=== PATIENT | female | born 1970 | race Two or more races ===

== ENCOUNTER → 2016-06-15 | Outpatient (CLI) | payer OTHER ==
[~2016-06-15] MED LIST: ATOR20TA; LISI-646; ROPI5TAB2; SUM25T; TRAM50TA2; [UNRECOGNIZED DRUG - CODE]
== END | disposition home or self-care (01) ==
LOC: LAB 12:01
PROVIDERS: ATTEND Nurse Practitioner
DX: Z02.1 Encounter for pre-employment examination (principal)
CPT/HCPCS: 36415; 86706; 86735; 86762; 86765; 86787

== ENCOUNTER → 2016-12-23 | Outpatient (CLI) | payer BC ==
[2016-12-23 12:00] LABS: Urine Bilirubin Negative (Negative); Urine Blood TRACE /uL (Negative); Urine Color Yellow (Yellow); Urine Glucose Normal (Normal); Urine Ketone Negative (Negative); Urine Mucus FEW (None Seen); Urine Nitrite Negative (Negative); Urine RBC 1 /hpf (0 - 4); Urine Squamous Epithelial Cell FEW /hpf (<5); Urine Urobilinogen Normal (Negative); Urine pH 6.5 (5.0-8.0)
[2016-12-23 12:31] LABS: Albumin 4.2 g/dL (3.4-5.0); BUN/Creatinine Ratio 20.9; Bilirubin, Total 0.5 mg/dL (0.2-1.0); Potassium 3.8 mmol/L (3.5-5.1); Total Protein 7.9 g/dL (6.4-8.2)
[2016-12-23 12:36] LABS: Vitamin B12 426 pg/mL (211-911)
[2016-12-23 14:41] LABS: Basophils # (auto) 0 uL; Basophils % (auto) 0.5 % (0.0-2.0); CONDITION Y; Eosinophils # (auto) 0.1 uL; Eosinophils % (auto) 2.2 % (0.0-7.0); Lymphocytes # (auto) 2.2 uL; Lymphocytes % (auto) 39.1 % (10.0-50.0); Mean Corpuscular Hemoglobin 29.3 pg (28.0-32.0); Mean Corpuscular Volume 86.1 fL (80.0-100.0); Mean Platelet Volume 8.5 fL (7.4-10.4); Monocytes # (auto) 0.3 uL; Monocytes % (auto) 5.1 % (0.0-12.0); Neutrophils % (auto) 53.1 % (37.0-80.0); Platelet Count (auto) 262 10^3/uL (140-450); White Blood Cell 5.6 10^3/uL (4.4-10.8)
== END | disposition home or self-care (01) ==
LOC: LAB 11:35
PROVIDERS: ATTEND Nurse Practitioner
DX: E78.5 Hyperlipidemia, unspecified (principal)
CPT/HCPCS: 36415; 80053; 80061; 81001; 82270; 82306; 82607; 82746; 83036; 84443; 85025

== ENCOUNTER → 2017-11-04 | Outpatient (CLI) | payer BC ==
[2017-11-04 12:06] LABS: Basophils # (auto) 0 uL; Basophils % (auto) 0.6 % (0.0-2.0); Eosinophils # (auto) 0.1 uL; Eosinophils % (auto) 1.6 % (0.0-7.0); Hematocrit 39.6 % (36.0-46.0); Hemoglobin 13.4 g/dL (12.2-16.2); Lymphocytes # (auto) 2.3 uL; Lymphocytes % (auto) 38.1 % (10.0-50.0); Mean Corpuscular Hemoglobin 29.5 pg (28.0-32.0); Mean Corpuscular Hgb Conc. 33.8 g/dL (32.0-36.0); Mean Corpuscular Volume 87.2 fL (80.0-100.0); Monocytes # (auto) 0.4 uL; Monocytes % (auto) 6.1 % (0.0-12.0); Neutrophils # (auto) 3.2 uL; Neutrophils % (auto) 53.6 % (37.0-80.0); Nucleated Red Blood Cells % 0.1 %; Platelet Count (auto) 213 10^3/uL (140-450); Red Blood Cells 4.54 10^6/uL (4.0-5.20); Red Cell Distribution Width 13.6 % (11.8-14.3); White Blood Cell 5.9 10^3/uL (4.4-10.8)
[2017-11-04 12:16] LABS: Urine Bacteria NONE SEEN /hpf (None Seen); Urine Blood TRACE /uL (Negative); Urine Mucus FEW (None Seen); Urine Specific Gravity 1.028 (1.001-1.035); Urine WBC 2 /hpf (0 - 5)
[2017-11-04 12:52] LABS: Albumin 3.9 g/dL (3.4-5.0); BUN/Creatinine Ratio 34.4; Bilirubin, Total 0.3 mg/dL (0.2-1.0); Calcium 8.7 mg/dL (8.5-10.1); Total Protein 7.2 g/dL (6.4-8.2)
== END | disposition home or self-care (01) ==
LOC: LAB 11:02
PROVIDERS: ATTEND Nurse Practitioner
DX: E78.5 Hyperlipidemia, unspecified (principal); I10 Essential (primary) hypertension
CPT/HCPCS: 36415; 80053; 80061; 81001; 82306; 83036; 85025

== ENCOUNTER → 2018-05-11 | Outpatient (CLI) | payer BC ==
[~2018-05-11] MED LIST changes: -ROPI5TAB2; +ROPI5TAB4
[2018-05-11 11:06] LABS: Basophils # (auto) 0 uL; Basophils % (auto) 0.7 % (0.0-2.0); Eosinophils # (auto) 0.1 uL; Hematocrit 40.8 % (36.0-46.0); Hemoglobin 13.4 g/dL (12.2-16.2); Lymphocytes # (auto) 2.2 uL; Lymphocytes % (auto) 44.2 % (10.0-50.0); Mean Corpuscular Hgb Conc. 32.9 g/dL (32.0-36.0); Mean Corpuscular Volume 88.3 fL (80.0-100.0); Monocytes # (auto) 0.3 uL; Monocytes % (auto) 5.3 % (0.0-12.0); Neutrophils # (auto) 2.4 uL; Neutrophils % (auto) 47.8 % (37.0-80.0); Nucleated Red Blood Cells % 0.1 %; Platelet Count (auto) 203 10^3/uL (140-450); Red Blood Cells 4.62 10^6/uL (4.0-5.20); Red Cell Distribution Width 13.2 % (11.8-14.3)
[2018-05-11 11:12] LABS: Urine Bacteria NONE SEEN /hpf (None Seen); Urine Blood Negative /uL (Negative); Urine Specific Gravity 1.011 (1.001-1.035); Urine WBC 1 /hpf (0 - 5)
[2018-05-11 11:21] LABS: Albumin 3.9 g/dL (3.4-5.0); Potassium 3.3 mmol/L (3.5-5.1)
[2018-05-11 11:29] LABS: BUN/Creatinine Ratio 27.8; Bilirubin, Total 0.3 mg/dL (0.2-1.0); Calcium 8.7 mg/dL (8.5-10.1); Total Protein 7.1 g/dL (6.4-8.2)
== END | disposition home or self-care (01) ==
LOC: LAB 10:06
PROVIDERS: ATTEND Nurse Practitioner
DX: E78.5 Hyperlipidemia, unspecified (principal)
CPT/HCPCS: 36415; 80053; 80061; 81001; 82306; 85025

== ENCOUNTER → 2018-12-13 | Outpatient (CLI) | payer BC | END | disposition home or self-care (01) | LOC: LAB 09:32 | PROVIDERS: ATTEND Nurse Practitioner | DX: Z01.818 Encounter for other preprocedural examination (principal) | CPT/HCPCS: 36415; 82565; 84520 ==

== ENCOUNTER → 2019-06-29 | Outpatient (CLI) | payer BC ==
[2019-06-29 08:21] LABS: Basophils # (auto) 0 uL; Basophils % (auto) 0.8 % (0.0-2.0); Eosinophils # (auto) 0.1 uL; Eosinophils % (auto) 2.1 % (0.0-7.0); Hematocrit 39.7 % (36.0-46.0); Hemoglobin 13.4 g/dL (12.2-16.2); Lymphocytes % (auto) 42.5 % (10.0-50.0); Mean Corpuscular Hgb Conc. 33.9 g/dL (32.0-36.0); Mean Corpuscular Volume 85.5 fL (80.0-100.0); Monocytes # (auto) 0.3 uL; Monocytes % (auto) 5.5 % (0.0-12.0); Neutrophils # (auto) 2.4 uL; Neutrophils % (auto) 49.1 % (37.0-80.0); Nucleated Red Blood Cells % 0.1 %; Platelet Count (auto) 232 10^3/uL (140-450); Red Blood Cells 4.64 10^6/uL (4.0-5.20); Red Cell Distribution Width 13.4 % (11.8-14.3); White Blood Cell 4.8 10^3/uL (4.4-10.8)
[2019-06-29 08:46] LABS: Urine Bacteria MOD /hpf (None Seen); Urine Blood Negative /uL (Negative); Urine Mucus FEW (None Seen); Urine WBC 7 /hpf (0 - 5)
[2019-06-29 08:58] LABS: Albumin 3.8 g/dL (3.4-5.0); Potassium 3.5 mmol/L (3.5-5.1)
[2019-06-29 09:02] LABS: BUN/Creatinine Ratio 23.1; Bilirubin, Total 0.3 mg/dL (0.2-1.0); Total Protein 7.2 g/dL (6.4-8.2)
== END | disposition home or self-care (01) ==
LOC: LAB 08:08
PROVIDERS: ATTEND Nurse Practitioner
DX: Z00.00 Encounter for general adult medical examination without abnormal findings (principal); E78.5 Hyperlipidemia, unspecified
CPT/HCPCS: 36415; 80053; 80061; 81001; 82306; 83036; 84443; 85025

== ENCOUNTER → 2019-11-14 | Outpatient (CLI) | payer BC ==
[2019-11-14 07:53] LABS: Urine Bacteria FEW /hpf (None Seen); Urine Blood Negative /uL (Negative); Urine Mucus FEW (None Seen); Urine Specific Gravity 1.017 (1.001-1.035); Urine WBC 2 /hpf (0 - 5)
[2019-11-14 07:56] LABS: Basophils # (auto) 0 10 ^3/uL (0-0.2); Basophils % (auto) 1.1 % (0.0-2.0); Eosinophils # (auto) 0.1 10 ^3/uL (0-0.8); Eosinophils % (auto) 2.6 % (0.0-7.0); Hematocrit 38.3 % (36.0-46.0); Hemoglobin 12.8 g/dL (12.2-16.2); Lymphocytes # (auto) 2.3 10 ^3/uL (0.4-5.4); Lymphocytes % (auto) 52.4 % (10.0-50.0); Mean Corpuscular Hemoglobin 28.8 pg (28.0-32.0); Mean Corpuscular Hgb Conc. 33.3 g/dL (32.0-36.0); Mean Corpuscular Volume 86.6 fL (80.0-100.0); Monocytes # (auto) 0.2 10 ^3/uL (0-1.3); Monocytes % (auto) 5.6 % (0.0-12.0); Neutrophils # (auto) 1.7 10 ^3/uL (1.6-8.6); Neutrophils % (auto) 38.3 % (37.0-80.0); Nucleated Red Blood Cells % 0.2 %; Platelet Count (auto) 201 10^3/uL (140-450); Red Blood Cells 4.43 10^6/uL (4.0-5.20); Red Cell Distribution Width 13.8 % (11.8-14.3); White Blood Cell 4.4 10^3/uL (4.4-10.8)
[2019-11-14 08:10] LABS: Potassium 3.9 mmol/L (3.5-5.1)
[2019-11-14 08:18] LABS: Albumin 3.8 g/dL (3.4-5.0); BUN/Creatinine Ratio 27.3; Bilirubin, Total 0.3 mg/dL (0.2-1.0); Calcium 8.8 mg/dL (8.5-10.1); Total Protein 6.7 g/dL (6.4-8.2)
== END | disposition home or self-care (01) ==
LOC: LAB 07:20
PROVIDERS: ATTEND Nurse Practitioner
DX: I10 Essential (primary) hypertension (principal); E78.5 Hyperlipidemia, unspecified; R73.9 Hyperglycemia, unspecified
CPT/HCPCS: 36415; 80053; 80061; 81001; 83036; 85025

== ENCOUNTER → 2020-09-11 | Outpatient (CLI) | payer BC ==
[~2020-09-11] MED LIST changes: -LISI-646; +LISI20TA28
== END | disposition home or self-care (01) ==
LOC: LAB 09:39
PROVIDERS: ATTEND Nurse Practitioner Family
DX: Z20.822 Contact with and (suspected) exposure to COVID-19 (principal)
CPT/HCPCS: C9803; U0003

== ENCOUNTER → 2021-04-15 | Outpatient (CLI) | payer BC | END | disposition home or self-care (01) | LOC: LAB 08:58 | PROVIDERS: ATTEND Nurse Practitioner Family | DX: Z11.52 Encounter for screening for COVID-19 (principal) | CPT/HCPCS: C9803; U0003 ==

== ENCOUNTER 2021-05-03 15:12 | Emergency (ER) | payer BC ==
[~2021-05-03] VITALS: Ht 162.6 cm; Wt 92.1 kg
[2021-05-03] MEDS ORDERED: cloNIDine HCL 0.1 MG TAB PO ONE (16:00)
[2021-05-03] MEDS ORDERED: LORazepam 0.5 MG TAB PO ONE (16:00)
[2021-05-03 16:59] LABS: Basophils # (auto) 0 10 ^3/uL (0-0.2); Basophils % (auto) 0.4 % (0.0-2.0); Eosinophils # (auto) 0.1 10 ^3/uL (0-0.8); Eosinophils % (auto) 1.6 % (0.0-7.0); Hematocrit 42.4 % (36.0-46.0); Hemoglobin 14.2 g/dL (12.2-16.2); Lymphocytes # (auto) 1.8 10 ^3/uL (0.4-5.4); Lymphocytes % (auto) 28.1 % (10.0-50.0); Mean Corpuscular Hemoglobin 28.9 pg (28.0-32.0); Mean Corpuscular Hgb Conc. 33.6 g/dL (32.0-36.0); Monocytes # (auto) 0.3 10 ^3/uL (0-1.3); Monocytes % (auto) 5.2 % (0.0-12.0); Neutrophils % (auto) 64.7 % (37.0-80.0); Nucleated Red Blood Cells % 0.1 %; Red Blood Cells 4.93 10^6/uL (4.0-5.20); Red Cell Distribution Width 13.5 % (11.8-14.3); White Blood Cell 6.2 10^3/uL (4.4-10.8)
[2021-05-03 17:11] LABS: Albumin 4.1 g/dL (3.4-5.0); Calcium 9.1 mg/dL (8.5-10.1); Potassium 3.5 mmol/L (3.5-5.1)
[2021-05-03 17:20] LABS: Bilirubin, Total 0.2 mg/dL (0.2-1.0); Total Protein 7.8 g/dL (6.4-8.2)
[2021-05-03 20:00] VITALS: BP 164/83
== END 2021-05-03 21:15 | disposition home or self-care (01) ==
LOC: ER 15:12
DX: I10 Essential (primary) hypertension (principal); F41.9 Anxiety disorder, unspecified; D64.9 Anemia, unspecified; E78.5 Hyperlipidemia, unspecified; Z91.040 Latex allergy status; Z90.710 Acquired absence of both cervix and uterus
CPT/HCPCS: 36415; 80053; 84484; 85025; 93005

== ENCOUNTER → 2021-06-02 | Outpatient (CLI) | payer BC ==
[2021-06-02 09:30] LABS: Basophils # (auto) 0 10 ^3/uL (0-0.2); Basophils % (auto) 0.5 % (0.0-2.0); Eosinophils # (auto) 0.1 10 ^3/uL (0-0.8); Eosinophils % (auto) 2.2 % (0.0-7.0); Hematocrit 39.9 % (36.0-46.0); Hemoglobin 13.3 g/dL (12.2-16.2); Lymphocytes # (auto) 1.9 10 ^3/uL (0.4-5.4); Lymphocytes % (auto) 39.2 % (10.0-50.0); Mean Corpuscular Hemoglobin 28.6 pg (28.0-32.0); Mean Corpuscular Hgb Conc. 33.4 g/dL (32.0-36.0); Mean Corpuscular Volume 85.7 fL (80.0-100.0); Monocytes # (auto) 0.3 10 ^3/uL (0-1.3); Monocytes % (auto) 5.8 % (0.0-12.0); Neutrophils # (auto) 2.5 10 ^3/uL (1.6-8.6); Neutrophils % (auto) 52.3 % (37.0-80.0); Nucleated Red Blood Cells % 0.1 %; Red Blood Cells 4.66 10^6/uL (4.0-5.20); Red Cell Distribution Width 13.3 % (11.8-14.3); White Blood Cell 4.8 10^3/uL (4.4-10.8)
[2021-06-02 09:36] LABS: Urine Bacteria NONE SEEN /hpf (None Seen); Urine Blood Negative /uL (Negative); Urine Hyaline Cast FEW /lpf (0 - 2); Urine Mucus FEW (None Seen); Urine Specific Gravity 1.021 (1.001-1.035); Urine WBC 10 /hpf (0 - 5)
[2021-06-02 09:53] LABS: Albumin 3.9 g/dL (3.4-5.0); Calcium 8.9 mg/dL (8.5-10.1); Potassium 3.8 mmol/L (3.5-5.1)
[2021-06-02 10:00] LABS: BUN/Creatinine Ratio 30.9; Bilirubin, Total 0.3 mg/dL (0.2-1.0); Total Protein 7.4 g/dL (6.4-8.2)
== END | disposition home or self-care (01) ==
LOC: LAB 08:23
PROVIDERS: ATTEND Nurse Practitioner
DX: R73.9 Hyperglycemia, unspecified (principal); E78.5 Hyperlipidemia, unspecified; I10 Essential (primary) hypertension
CPT/HCPCS: 36415; 80053; 80061; 81001; 84443; 85025

== ENCOUNTER → 2021-12-02 | Outpatient (CLI) | payer BC ==
[2021-12-02 07:41] LABS: Albumin 3.6 g/dL (3.4-5.0)
[2021-12-02 07:46] LABS: BUN/Creatinine Ratio 33.3; Bilirubin, Total 0.5 mg/dL (0.2-1.0); Total Protein 6.8 g/dL (6.4-8.2)
== END | disposition home or self-care (01) ==
LOC: LAB 06:33
PROVIDERS: ATTEND Nurse Practitioner
DX: E78.5 Hyperlipidemia, unspecified (principal)
CPT/HCPCS: 36415; 80053; 80061

== ENCOUNTER → 2022-04-01 | Outpatient (CLI) | payer BC ==
[2022-04-01 09:53] LABS: Albumin 3.7 g/dL (3.4-5.0); BUN/Creatinine Ratio 27.5; Calcium 9.1 mg/dL (8.5-10.1); Potassium 3.3 mmol/L (3.5-5.1); Total Protein 6.9 g/dL (6.4-8.2)
== END | disposition home or self-care (01) ==
LOC: LAB 08:58
PROVIDERS: ATTEND Nurse Practitioner
DX: E78.5 Hyperlipidemia, unspecified (principal); E73.9 Lactose intolerance, unspecified
CPT/HCPCS: 36415; 80053; 80061; 83036

== ENCOUNTER → 2022-09-28 | Outpatient (CLI) | payer BC | END | disposition home or self-care (01) | LOC: LAB 16:04 | PROVIDERS: ATTEND Licensed Practical Nurse | DX: K92.1 Melena (principal) | CPT/HCPCS: 82270 ==

== ENCOUNTER → 2022-11-25 | Outpatient (CLI) | payer BC ==
[~2022-11-25] MED LIST changes: -LISI20TA28; +LISI20TA56; +ROPI5TAB17; -ROPI5TAB4
[2022-11-25 15:07] LABS: Basophils # (auto) 0 10 ^3/uL (0-0.2); Basophils % (auto) 0.5 % (0.0-2.0); Eosinophils # (auto) 0.1 10 ^3/uL (0-0.8); Hematocrit 40.9 % (36.0-46.0); Hemoglobin 13.8 g/dL (12.2-16.2); Lymphocytes # (auto) 2.1 10 ^3/uL (0.4-5.4); Lymphocytes % (auto) 36.1 % (10.0-50.0); Mean Corpuscular Hemoglobin 29.2 pg (28.0-32.0); Mean Corpuscular Hgb Conc. 33.8 g/dL (32.0-36.0); Mean Corpuscular Volume 86.4 fL (80.0-100.0); Monocytes # (auto) 0.3 10 ^3/uL (0-1.3); Neutrophils # (auto) 3.3 10 ^3/uL (1.6-8.6); Neutrophils % (auto) 56.4 % (37.0-80.0); Red Blood Cells 4.73 10^6/uL (4.0-5.20); Red Cell Distribution Width 13.5 % (11.8-14.3); White Blood Cell 5.8 10^3/uL (4.4-10.8)
[2022-11-25 15:32] LABS: Urine Bacteria NONE SEEN /hpf (None Seen); Urine Blood Negative /uL (Negative); Urine Mucus FEW (None Seen); Urine Specific Gravity 1.015 (1.001-1.035); Urine WBC 1 /hpf (0 - 5)
[2022-11-25 15:42] LABS: Albumin 4.2 g/dL (3.4-5.0); Calcium 9.6 mg/dL (8.5-10.1); Potassium 4.1 mmol/L (3.5-5.1)
[2022-11-25 15:46] LABS: BUN/Creatinine Ratio 22.4 (10.0-20.0); Bilirubin, Total 0.7 mg/dL (0.2-1.0); Total Protein 7.5 g/dL (6.4-8.2)
== END | disposition home or self-care (01) ==
LOC: LAB 14:40
PROVIDERS: ATTEND Internal Medicine
DX: I10 Essential (primary) hypertension (principal); E78.5 Hyperlipidemia, unspecified
CPT/HCPCS: 36415; 80053; 80061; 81001; 83036; 85025

== ENCOUNTER 2023-02-16 13:19 | Day surgery (SDC) | payer BC ==
[2023-02-14 14:33] LABS: Basophils # (auto) 0 10 ^3/uL (0-0.2); Basophils % (auto) 0.7 % (0.0-2.0); Eosinophils # (auto) 0.1 10 ^3/uL (0-0.8); Eosinophils % (auto) 1.2 % (0.0-7.0); Hematocrit 37.9 % (36.0-46.0); Hemoglobin 12.7 g/dL (12.2-16.2); Lymphocytes # (auto) 2.1 10 ^3/uL (0.4-5.4); Lymphocytes % (auto) 37.3 % (10.0-50.0); Mean Corpuscular Hgb Conc. 33.6 g/dL (32.0-36.0); Mean Corpuscular Volume 86.5 fL (80.0-100.0); Monocytes # (auto) 0.4 10 ^3/uL (0-1.3); Monocytes % (auto) 6.6 % (0.0-12.0); Neutrophils % (auto) 54.2 % (37.0-80.0); Nucleated Red Blood Cells % 0.1 %; Red Blood Cells 4.39 10^6/uL (4.0-5.20); Red Cell Distribution Width 13.5 % (11.8-14.3); White Blood Cell 5.5 10^3/uL (4.4-10.8)
[2023-02-14 14:49] LABS: Partial Thromboplastin Time 29.9 SEC (24.5-34.5); Prothrombin Time 10.5 sec (9.3-11.8)
[2023-02-14 15:05] LABS: Alanine Aminotransferase 20 U/L (7-40); Albumin 4.6 g/dL (3.2-4.8); Alkaline Phosphatase 51 U/L (46-116); Anion Gap 7 (5-15); Aspartate Aminotransferase 18 U/L (13-40); BUN/Creatinine Ratio 16.1 (10.0-20.0); Bilirubin, Total 0.4 mg/dL (0.2-1.0); Blood Urea Nitrogen 10 mg/dL (9-23); Calcium 9.7 mg/dL (8.5-10.1); Carbon Dioxide 28 mmol/L (20-30); Chloride 107 mmol/L (98-107); Glucose 103 mg/dL (74-106); Potassium 3.8 mmol/L (3.5-5.1); Sodium 142 mmol/L (136-145); Total Protein 7.4 g/dL (5.7-8.2)
[~2023-02-16] VITALS: Ht 162.6 cm; Wt 83.5 kg
[~2023-02-16 13:19] MED LIST changes: -ATOR20TA; +CHOL200064 PO; -LISI20TA56; +POTA10TA51 PO; -ROPI5TAB17; +SERT-206 PO; -TRAM50TA2; +TRIA75TA11 PO; -[UNRECOGNIZED DRUG - CODE]
[2023-02-16] MEDS ORDERED: SODIUM CHLORIDE LOCK 10 ML ONE (14:38)
[2023-02-16 15:00] VITALS: PULSE 81; RESP 20; O2SAT 99
[2023-02-16] MEDS: MIDAZOLAM HCL 5 MG/ML-1ML VIAL ONE ×3 (15:05→15:14)
[2023-02-16] MEDS: fentaNYL CITRATE 100 MCG/2 ML VL ONE ×2 (15:05→15:11)
[2023-02-16] MEDS: diphenhdrAMINE HCL 50 MG/1 ML VL ONE ×2 (15:05→15:07)
[2023-02-16 15:25] VITALS: TEMP 97.3; O2SAT 99
[2023-02-16 15:55] VITALS: BP 139/87; PULSE 72; RESP 15; O2SAT 98
== END 2023-02-16 15:58 | disposition home or self-care (01) ==
LOC: GI 13:19
PROVIDERS: ATTEND Internal Medicine Gastroenterology
DX: Z12.11 Encounter for screening for malignant neoplasm of colon (principal); K64.0 First degree hemorrhoids; K57.30 Diverticulosis of large intestine without perforation or abscess without bleeding
CPT/HCPCS: 36415; 45378; 80053; 85025; 85610; 85730; J1200; J2250; J3010; J7030; 99152

== ENCOUNTER → 2023-02-28 | Outpatient (CLI) | payer BC ==
[2023-02-28 08:40] LABS: Triglycerides 200 mg/dL (< 150)
[2023-02-28 08:41] LABS: LDL Cholesterol 126 mg/dL (< 100)
[2023-02-28 08:42] LABS: Cholesterol 212 mg/dL (< 200); HDL Cholesterol 53 mg/dL (40-59)
== END | disposition home or self-care (01) ==
LOC: LAB 08:22
PROVIDERS: ATTEND Internal Medicine
DX: E78.5 Hyperlipidemia, unspecified (principal)
CPT/HCPCS: 36415; 80061

== ENCOUNTER → 2023-07-15 | Outpatient (CLI) | payer BC ==
[2023-07-15 12:48] LABS: LDL Cholesterol 161 mg/dL (< 100); Triglycerides 98 mg/dL (< 150)
[2023-07-15 12:49] LABS: Cholesterol 221 mg/dL (< 200); HDL Cholesterol 59 mg/dL (40-59)
== END | disposition home or self-care (01) ==
LOC: LAB 10:18
PROVIDERS: ATTEND Internal Medicine
DX: E78.5 Hyperlipidemia, unspecified (principal)
CPT/HCPCS: 36415; 80061; 83036

== ENCOUNTER 2023-11-30 00:15 | Emergency (ER) | payer BC ==
[~2023-11-30] VITALS: Ht 162.6 cm; Wt 81.0 kg
[~2023-11-30 00:15] MED LIST changes: +POTA-36 PO; -POTA10TA51 PO
[2023-11-30] MEDS: ONDANSETRON HCL 4 MG/2 ML VIAL IV ONE (00:45)
[2023-11-30 01:13] LABS: Basophils # (auto) 0 10 ^3/uL (0-0.2); Basophils % (auto) 0.3 % (0.0-2.0); Eosinophils # (auto) 0 10 ^3/uL (0-0.8); Eosinophils % (auto) 0.4 % (0.0-7.0); Hematocrit 39.6 % (36.0-46.0); Hemoglobin 13.7 g/dL (12.2-16.2); Lymphocytes # (auto) 1.7 10 ^3/uL (0.4-5.4); Lymphocytes % (auto) 23.8 % (10.0-50.0); Mean Corpuscular Hemoglobin 30.1 pg (28.0-32.0); Mean Corpuscular Hgb Conc. 34.7 g/dL (32.0-36.0); Mean Corpuscular Volume 86.7 fL (80.0-100.0); Monocytes # (auto) 0.5 10 ^3/uL (0-1.3); Monocytes % (auto) 6.7 % (0.0-12.0); Neutrophils # (auto) 5.1 10 ^3/uL (1.6-8.6); Neutrophils % (auto) 68.8 % (37.0-80.0); Nucleated Red Blood Cells % 0.1 %; Red Blood Cells 4.57 10^6/uL (4.0-5.20); Red Cell Distribution Width 13.5 % (11.8-14.3); White Blood Cell 7.4 10^3/uL (4.4-10.8)
[2023-11-30 01:18] LABS: Alanine Aminotransferase 17 U/L (7-40); Albumin 4.5 g/dL (3.2-4.8); Alkaline Phosphatase 59 U/L (46-116); Anion Gap 10 (5-15); Aspartate Aminotransferase 12 U/L (13-40); BUN/Creatinine Ratio 14.8 (10.0-20.0); Bilirubin, Total 0.7 mg/dL (0.2-1.0); Blood Urea Nitrogen 13 mg/dL (9-23); Calcium 10.1 mg/dL (8.7-10.4); Carbon Dioxide 22 mmol/L (20-30); Chloride 106 mmol/L (98-107); Glucose 123 mg/dL (74-106); Lipase 32 U/L (12-53); Potassium 3.8 mmol/L (3.5-5.1); Sodium 138 mmol/L (136-145); Total Protein 6.9 g/dL (5.7-8.2)
[2023-11-30 06:06] VITALS: BP 130/76; TEMP 97.4
[2023-11-30 06:07] VITALS: PULSE 74; RESP 16; O2SAT 98
== END 2023-11-30 06:13 | disposition home or self-care (01) ==
LOC: ER 00:15
DX: K52.9 Noninfective gastroenteritis and colitis, unspecified (principal); R55 Syncope and collapse; F41.9 Anxiety disorder, unspecified; E78.5 Hyperlipidemia, unspecified; I10 Essential (primary) hypertension; Z90.710 Acquired absence of both cervix and uterus; Z91.040 Latex allergy status; Z79.899 Other long term (current) drug therapy
CPT/HCPCS: 36415; 70450; 74176; 80053; 80320; 83690; 85025

== ENCOUNTER → 2024-05-11 | Day surgery (SDC) | payer BC ==
[2024-05-07 15:26] LABS: Basophils # (auto) 0.1 10 ^3/uL (0-0.2); Basophils % (auto) 0.8 % (0.0-2.0); Eosinophils # (auto) 0.1 10 ^3/uL (0-0.8); Hemoglobin 13.6 g/dL (12.2-16.2); Lymphocytes # (auto) 2.4 10 ^3/uL (0.4-5.4); Lymphocytes % (auto) 37.1 % (10.0-50.0); Mean Corpuscular Hemoglobin 29.3 pg (28.0-32.0); Mean Corpuscular Volume 86.2 fL (80.0-100.0); Monocytes # (auto) 0.3 10 ^3/uL (0-1.3); Monocytes % (auto) 5.1 % (0.0-12.0); Neutrophils # (auto) 3.6 10 ^3/uL (1.6-8.6); Nucleated Red Blood Cells % 0.1 %; Platelet Count (auto) 279 10^3/uL (140-450); Red Blood Cells 4.65 10^6/uL (4.0-5.20); Red Cell Distribution Width 13.2 % (11.8-14.3); White Blood Cell 6.4 10^3/uL (4.4-10.8)
[2024-05-07 15:50] LABS: Alanine Aminotransferase 19 U/L (7-40); Albumin 4.6 g/dL (3.2-4.8); Alkaline Phosphatase 71 U/L (46-116); Anion Gap 9 (5-15); Aspartate Aminotransferase 13 U/L (13-40); Blood Urea Nitrogen 12 mg/dL (9-23); Carbon Dioxide 26 mmol/L (20-31); Potassium 3.6 mmol/L (3.5-5.1); Sodium 144 mmol/L (136-145)
[2024-05-07 15:52] LABS: Bilirubin, Total 0.3 mg/dL (0.2-1.0); Total Protein 7.3 g/dL (5.7-8.2)
[2024-05-07 15:55] LABS: Calcium 10.7 mg/dL (8.7-10.4); Chloride 109 mmol/L (98-107); Glucose 106 mg/dL (74-106)
[2024-05-07 15:56] LABS: Urine Bacteria None Seen /hpf (None Seen)
[2024-05-07 15:57] LABS: INR 0.99 (0.9-1.15); Partial Thromboplastin Time 28.7 SEC (24.5-34.5); Prothrombin Time 10.5 sec (9.3-11.8)
[2024-05-07 16:01] LABS: Urine Blood Negative /uL (Negative); Urine Clarity Clear (Clear); Urine Color Colorless (Yellow); Urine Protein, UAD Negative (Negative); Urine Squamous Epithelial Cell FEW /hpf (<5); Urine Urobilinogen Normal (Negative); Urine WBC 1 /hpf (0 - 5)
[~2024-05-11] VITALS: Ht 162.6 cm; Wt 83.5 kg
[~2024-05-11] MED LIST changes: +SODIUM CHLORIDE LOCK 10 ML ONE
[2024-05-11] MEDS: LIDOCAINE VISCOUS 2% 15ML UD ONE (10:09)
[2024-05-11] MEDS: fentaNYL CITRATE 100 MCG/2 ML VL ONE (10:12)
[2024-05-11] MEDS: MIDAZOLAM HCL 5 MG/ML-1ML VIAL ONE (10:12)
[2024-05-11] MEDS: diphenhdrAMINE HCL 50 MG/1 ML VL ONE (10:12)
[2024-05-11 10:24] VITALS: PULSE 75; RESP 68; TEMP 97.4; O2SAT 96
--- NOTE | 2024-05-11 10:24 | DVHOP2 ---
Operative Report DATE OF OPERATION: 05/11/24 PROCEDURE: Upper Endoscopy with biopsy PREOPERATIVE INDICATION: The patient is a 53 -year-old female undergoing endoscopy for GERD atypical chest pain and dyspepsia POSTOPERATIVE DIAGNOSES: 1. Slightly irregular squamocolumnar junction or Z-line but no significant erosive esophagitis 2. Xowp-yf-qebptssv gastritis involving the antrum and body of the stomach 3. Otherwise normal examination up to the 2nd and 3rd part of the duodenum PROCEDURE PERFORMED BY: Marybeth Marc GI NURSE: Maren SCOPE: Olympus videoendoscope. ASA CLASS: 2. PREOPERATIVE MEDICATIONS: Versed 3 mg, Fentanyl 75 mcg, Benadryl 50 mg I administered moderate sedation throughout this _7_ minutes procedure. An independent trained observer pushed medications at my direction, and monitored the patient's level of consciousness and physiological status throughout. PROCEDURE IN DETAIL: After obtaining an informed consent, the patient was placed on left lateral decubitus position. The patient was then sedated with the above medications. A bite block was placed between her teeth. The endoscope was then passed through the oropharynx, into the esophagus, and through the stomach and pylorus up to the second and third part of the duodenum. The endoscope was then withdrawn. Second and 3rd part of the duodenal and the duodenal bulb were normal. There was good bile drainage. Duodenal biopsies were obtained. The pre-pyloric area antrum and body of the stomach showed [id number] gastritis with some hyperemia erythema. On retroflexion the fundus cardia and angularis were normal. Gastric biopsies were obtained. The endoscope was then withdrawn into the distal esophagus where she had a slightly irregular Z-line but no significant erosive esophagitis GE junction biopsies were obtained. The remaining distal and proximal esophagus and oropharynx were unremarkable. The patient tolerated the procedure well without difficulty. COMPLICATIONS : None SPECIMENS: Duodenal biopsies Gastric biopsies GE junction biopsies DISPOSITION: Stable D/C to home PLAN: 1. Await for biopsy result 2. Will place pt on Protonix 40 mg p.o. daily 3. Carafate 1 g p.o. twice a day 4. DC aspirin NSAIDs smoking alcohol 5. Resume GI soft diet advance as tolerated 6. Outpatient follow up with me in 4-6 weeks to review results and discuss further management MARYBETH MARC MD May 11, 2024 10:24
[2024-05-11 10:54] VITALS: BP 134/80; PULSE 71; RESP 20; O2SAT 98
== END | disposition home or self-care (01) ==
LOC: EEVIPCON → GI 08:41
PROVIDERS: ATTEND Internal Medicine Gastroenterology
DX: K29.50 Unspecified chronic gastritis without bleeding (principal); K21.00 Gastro-esophageal reflux disease with esophagitis, without bleeding; B96.81 Helicobacter pylori [H. pylori] as the cause of diseases classified elsewhere; R11.2 Nausea with vomiting, unspecified; R10.84 Generalized abdominal pain; R07.89 Other chest pain; G43.909 Migraine, unspecified, not intractable, without status migrainosus; Z90.710 Acquired absence of both cervix and uterus; I10 Essential (primary) hypertension; F17.200 Nicotine dependence, unspecified, uncomplicated; Z79.899 Other long term (current) drug therapy
CPT/HCPCS: 36415; 43239; 80053; 81001; 85025; 85610; 85730; 88305; 88312; 88342; J1200; J2250; J3010; J7030

== ENCOUNTER 2024-10-10 16:44 | Emergency (ER) | payer BC ==
[~2024-10-10] VITALS: Ht 162.6 cm; Wt 83.4 kg
[~2024-10-10 16:44] MED LIST changes: -SODIUM CHLORIDE LOCK 10 ML ONE
--- NOTE | 2024-10-10 17:20 | ED.PDOC ---
GI ASSESSMENT HPI Comments HATHAWAY: N/V/D AP HPI: Poor Historian. 54-year-old female presents to emergency department for evaluation of generalized diffuse abdominal pain with the associated nausea and vomiting nonbilious nonbloody and diarrhea normal in color. Onset of symptoms last night. No sick contacts. Denies any urinary symptoms. Vitals: temperature of 98.3F, pulse of 97, respiratory rate of 16, blood pressure of 154/91, and a SpO2 of 99%RA Past Medical History: anxiety, pre-DM, HLD, HTN, GERD Past Surgical History: Hysterectomy, colonoscopy REVIEW OF SYSTEMS: CONSTITUTIONAL: Denies acute: fever, diaphoresis, chills, HEAD: Denies acute: headache, photophobia Eyes: Denies acute: Double vision, vision loss, eye pain, eye discharge. EARS: Denies acute: tinnitus, hearing loss, ear discharge, ear pain, THROAT: Denies acute: sore throat, swelling, difficulty swallowing , pain with swallowing, change in voice. NECK: Denies acute: neck pain, neck swelling, stiff neck. HEART: Denies acute : chest pain, palpitations, LUNGS: Denies acute: SOB, wheezing, cough, hemoptysis ABDOMEN: Denies acute: melena , hematemesis, hematochezia SKIN: Denies acute: rash, redness, lesions, itchiness. EXTREMITIES: Denies acute: calf pain, numbness, tingling, weakness, denies pain in extremity. Denies acute: Low back pain. Neuro: Denies acute: focal neurological deficit, motor or sensory focal neurological deficit, tremors, seizure like activity, confusion, dizziness, change in mental status, loss of bowel or bladder function, cauda equina like symptoms. : Denies acute: dysuria, hematuria, flank pain, increase in urinary frequency. PSYCH: Denies acute: hallucination, suicidal ideation, homicidal ideation. FEMALE: Denies acute: abnormal vaginal bleeding, foul odor, unusual discharge. PHYSICAL EXAM: General: ----mild----acute distress, awake and alert. Head: normocephalic, atraumatic. Neck: supple, trachea is midline, no swelling. Throat: Normal phonation. Eyes:, no erythema, no purulent discharge, no proptosis, no icterus. Heart: regular rate, regular rhythm, no significant murmur appreciated. Lungs: no apparent respiratory distress, Able to speak in full sentences. No wheezing, no rhonchi, no crackles. No stridors Clear to auscultation bilaterally. Abdomen: Generalized diffuse mild tender to palpation, non distended, soft, no guarding, no rebound, + bowel sounds. Obese Neuro: Awake, Alert, oriented to name, self, situation, follows commands GCS=15. Speech is normal. Skin: no petechia, no purpura, no cyanosis, non-pale, not jaundice. Lower extremities: --no - Pitting edema no deformity, no focal swelling, no calf TTP. Makes eye contact. moves all four extremities. Face: no apparent facial droop. Ambulating in the ED independently. ED COURSE: Chief Complaint: Nausea/Vomiting Time Seen by MD: 16:46 Primary Care Provider: ROSLYN Reviewed Notes: Nurses Notes, Allergies Allergies: Coded Allergies: Latex (Verified Allergy, Unknown, 04/11/15) Uncoded Allergies: BEES (Allergy, Severe, 10/10/24) Home Meds Reported Medications Cholecalciferol (D3 2000) 2,000 Unit Cap, 2000 UNIT PO DAILY, CAP 02/14/23 Sertraline Hcl (Sertraline Hcl) 50 Mg Tab, 50 MG PO DAILY, TAB 02/14/23 Potassium Chloride (POTASSIUM CHLORIDE CR) 10 Meq Tb, 10 MEQ PO DAILY, TAB 02/14/23 Hydrochlorothiazide W/Triamter (Hctz/Triamterene) 1 Tab Tab, 1 TAB PO DAILY, TAB 02/14/23 Sumatriptan Succinate (Imitrex) 25 Mg Tab 02/19/12 Information Source: Patient Mode of Arrival: Ambulatory Past Medical History PAST MEDICAL HISTORY: Anxiety, DM (preDM), High Lipids, HTN Past Medical History (Other): GERD Surgical History: Hysterectomy 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 Was a procedure done?: No GI differential Dx Differential Diagnosis: Gastritis/PUD, Gastroenteritis, Other (DDX include Diverticulitis, colitis, gastroenteritis, acute abdomen, SBO, enteritis, constipation, volvulus, appendicitis, Gallbladder disease, choledocolithiasis, ascending cholangitis, pancreatitis, intraAbdominal mass/neoplasm, hepatitis, UTI, pylonephritis, kidney stone, aneurysm, dissection, Inflammatory bowel disease, gastroparesis, ischemic bowel, ovarian torsion, ovarian cyst/mass, tubo-ovarian abscess, ) X-Ray, Labs, Meds, VS Vital Signs Date Time Temp Pulse Resp B/P (MAP) Pulse Ox O2 Delivery O2 Flow Rate FiO2 10/10/24 19:40 Room Air* 0 21 10/10/24 18:57 81 16 98 Room Air* 0 21 10/10/24 18:43 99.1 81 16 123/84 (97) 98 99.1 10/10/24 17:06 98.3 97 16 154/91 (112) 99 98.3 Lab Test 10/10/24 20:20 10/10/24 17:10 10/10/24 17:05 Range/Units Stool for White Cells None seen White Blood Count 10.6 4.4-10.8 10^3/uL Red Blood Count 4.98 4.0-5.20 10^6/uL Hemoglobin 14.7 12.2-16.2 g/dL Hematocrit 42.2 36.0-46.0 % Mean Corpuscular Volume 84.7 80.0-100.0 fL Mean Corpuscular Hemoglobin 29.6 28.0-32.0 pg Mean Corpuscular Hemoglobin Concent 34.9 32.0-36.0 g/dL Red Cell Distribution Width 13.9 11.8-14.3 % Platelet Count 214 140-450 10^3/uL Mean Platelet Volume 8.6 6.9-10.8 fL Neutrophils (%) (Auto) 90.9 H 37.0-80.0 % Lymphocytes (%) (Auto) 6.8 L 10.0-50.0 % Monocytes (%) (Auto) 1.7 0.0-12.0 % Eosinophils (%) (Auto) 0.1 0.0-7.0 % Basophils (%) (Auto) 0.5 0.0-2.0 % Neutrophils # (Auto) 9.6 H 1.6-8.6 10 ^3/uL Lymphocytes # (Auto) 0.7 0.4-5.4 10 ^3/uL Monocytes # (Auto) 0.2 0-1.3 10 ^3/uL Eosinophils # (Auto) 0 0-0.8 10 ^3/uL Basophils # (Auto) 0.1 0-0.2 10 ^3/uL Nucleated Red Blood Cells 0.0 % Sodium Level 142 136-145 mmol/L Potassium Level 3.6 3.5-5.1 mmol/L Chloride Level 107 98-107 mmol/L Carbon Dioxide Level 23 20-31 mmol/L Anion Gap 12 5-15 Blood Urea Nitrogen 22 9-23 mg/dL Creatinine 0.56 0.550-1.02 mg/dL Glomerular Filtration Rate Calc 107 >90 mL/min BUN/Creatinine Ratio 39.3 H 10.0-20.0 Serum Glucose 115 H 74-106 mg/dL Lactic Acid Level 2.0 0.4-2.0 mmol/L Calcium Level 9.4 8.7-10.4 mg/dL Magnesium Level 2.0 1.6-2.6 mg/dL Total Bilirubin 0.7 0.2-1.0 mg/dL Aspartate Amino Transferase (AST) 31 13-40 U/L Alanine Aminotransferase (ALT) 36 7-40 U/L Alkaline Phosphatase 67 46-116 U/L Troponin I High Sensitivity < 3 L </=34 ng/L Total Protein 6.9 5.7-8.2 g/dL Albumin 4.6 3.2-4.8 g/dL Lipase 31 12-53 U/L Urine Color Light-yellow Yellow Urine Clarity Clear Clear Urine pH 8.5 5.0-9.0 Urine Specific [place] 1.018 1.001-1.035 Urine Protein Negative Negative Urine Ketones Negative Negative Urine Blood Negative Negative /uL Urine Nitrite Negative Negative Urine Bilirubin Negative Negative Urine Urobilinogen Normal Negative mg/dL Urine Leukocyte Esterase Negative Negative /uL Urine RBC 1 0 - 4 /hpf Urine Microscopic WBC 1 0-5 /HPF Urine Squamous Epithelial Cells Few <5 /hpf Urine Bacteria None seen None Seen /hpf Urine Glucose Normal Normal mg/dL Current Medications Medications (Trade) Dose Ordered Sig/Conrad Route Start Time Stop Time Status Last Admin Sodium Chloride 1,000 ml @ 1,000 mls/hr Q1H ONCE IV 10/10/24 17:15 10/10/24 18:14 DC 10/10/24 18:53 Ondansetron HCl (Zofran) 8 mg ONCE ONCE IV 10/10/24 17:15 10/10/24 17:16 DC 10/10/24 18:53 Sucralfate (Carafate Tab) 1 gm ONCE ONCE PO 10/10/24 19:15 10/10/24 19:16 DC 10/10/24 19:41 Pantoprazole Sodium (Protonix Tablet) 40 mg ONCE ONCE PO 10/10/24 19:15 10/10/24 19:16 DC 10/10/24 19:41 Lidocaine HCl (Xylocaine 2% Viscous) 10 ml ONCE ONCE PO 10/10/24 19:15 10/10/24 19:16 DC 10/10/24 19:41 PATIENT: CUATE HATHAWAY GACCT: [id number]: [id number] : 1970 LOC: ER ROOM / BED: / AGE / SEX: 54 / F ADM STATUS: REG ER SERVICE 1701 ORDERING PHYSICIAN: JOSEMANUEL YAÑEZ DO PROCEDURE(s): ABPL - CT AB PEL WO CON-NO ORAL OR IV REASON: ABD PAIN N/V/D ORDER NUMBER(s): [id number], ACCESSION NUMBER(s): [id number] EXAM: CT Abdomen and Pelvis Without Intravenous Contrast CLINICAL INDICATION: ABD PAIN N/V/D TECHNIQUE: Axial computed tomography images of the abdomen and pelvis without intravenous contrast. This CT exam was performed using one or more of the following dose reduction techniques: automated exposure control, adjustment of the mA and/or kV according to patient size, and/or use of iterative reconstruction technique. CONTRAST: RADIATION DOSE: CTDIvol = 19.31 mGy, DLP = 948.18 mGy-cm COMPARISON: CT CT AB PEL WO CON-NO ORAL OR IV on DOS: 11/30/23 FINDINGS: LUNG BASES: Unremarkable. No mass. No consolidation. MEDIASTINUM: Small esophageal hiatal hernia. ABDOMEN: LIVER: Hepatomegaly with fatty infiltration. Hepatic cysts. GALLBLADDER AND BILE DUCTS: Unremarkable. No calcified stones. No ductal dilation. PANCREAS: Unremarkable. No ductal dilation. SPLEEN: Unremarkable. No splenomegaly. ADRENALS: Unremarkable. No mass. KIDNEYS AND URETERS: Bilateral nephrolithiasis without hydronephrosis. Parapelvic renal cysts, bilaterally. STOMACH AND BOWEL: Colonic diverticulosis without acute diverticulitis. No obstruction. PELVIS: APPENDIX: No findings to suggest acute appendicitis. BLADDER: Unremarkable. No stones. REPRODUCTIVE: Unremarkable as visualized. ABDOMEN and PELVIS: INTRAPERITONEAL SPACE: Unremarkable. No free air. No significant fluid collection. BONES/JOINTS: No acute fracture. No dislocation. SOFT TISSUES: Umbilical hernia containing fat. VASCULATURE: Unremarkable. No abdominal aortic aneurysm. LYMPH NODES: Unremarkable. No enlarged lymph nodes. OTHER FINDINGS: . . . IMPRESSION: 1. Small esophageal hiatal hernia. 2. Hepatomegaly with fatty infiltration. 3. Bilateral nephrolithiasis without hydronephrosis. 4. Umbilical hernia containing fat. 5. Colonic diverticulosis without acute diverticulitis. ATED BY: TANIYA GOMEZ MD DICTATED DATE/TIME: 10/10/241801 SIGNED BY: TANIYA GOMEZ MD SIGNED DATE/TIME: 10/10/241801 Time of 1ST Reevaluation: 16:46 Reevaluation 1ST: Unchanged Patient Education/Counseling: Diagnosis, Treatment, Need For Follow Up Family Education/Counseling: No Family Present Comments Patient presented with the above HPI.--abdominal pain nausea vomiting diarrhea----workup was initiated. patient was found with the above mentioned diagnosis. the following medications were ordered: please refer to order lists of meds and tests obtained by myself Dr. Yañez. Patient ED course and VS have been stabilized. Patient has been reassessed in the ED and remained in a stable condition. Patient has been observed in the ED adequate length of time to insure improveme nt/stability. Escalation of care considered: Consideration of escalation to observation or admission Patient was DISCHARGED home in a stable condition. All the reports of any imaging studies that were ordered by myself were reviewed by myself. Departure 1 Departure Time of Disposition: 19:04 Impression: Primary Impression: Abdominal pain Additional Impressions: Nausea vomiting and diarrhea Hepatomegaly Hiatal hernia Umbilical hernia Disposition: 01 HOME / SELF CARE / HOMELESS Condition: Stable Additional Instructions: Additional instructions: You MUST follow-up with your primary care/family doctor in 1 to 2 days. If you are unable to see your primary care/family doctor, please return to our emergency room for re-assessment and re-evaluation in 1 to 2 days. Return to the emergency room here in our facility or to the nearest ER [facility] if your symptoms change or worsen. CONSULTATIONS: you MUST Follow-up for consultation as soon as possible with: -gastroenterology in 1-2 days. Please call for appointment. You MUST call the consultants office yourself to make an appointment. You may need to arrange that through your insurance and/or your primary/family doctor. If you are unable to see the remediation consultant in 1 to 2 days, you must return to our emergency room (or any other ER of your choice) for re-assessment and re-ev aluation. Adequate fluid hydration. Provide a stool sample to your family doctor if you have not already for further analysis. Below is a copy of your radiological report for follow up: [place] [id number] Ph: [phone] DIAGNOSTIC IMAGING Diagnostic Imaging Report : [id number] Signed PATIENT: CUATE HATHAWAY ACCT: [id number] UNIT: [id number] : 1970 LOC: ER ROOM / BED: / AGE / SEX: 54 / F ADM STATUS: REG ER SERVICE 1701 ORDERING PHYSICIAN: JOSEMANUEL YAÑEZ DO PROCEDURE(s): ABPL - CT AB PEL WO CON-NO ORAL OR IV REASON: ABD PAIN N/V/D ORDER NUMBER(s): [id number], ACCESSION NUMBER(s): [id number] EXAM: CT Abdomen and Pelvis Without Intravenous Contrast CLINICAL INDICATION: ABD PAIN N/V/D TECHNIQUE: Axial computed tomography images of the abdomen and pelvis without intravenous contrast. This CT exam was performed using one or more of the following dose reduction techniques: automated exposure control, adjustment of the mA and/or kV according to patient size, and/or use of iterative reconstruction technique. CONTRAST: RADIATION DOSE: CTDIvol = 19.31 mGy, DLP = 948.18 mGy-cm COMPARISON: CT CT AB PEL WO CON-NO ORAL OR IV on DOS: 11/30/23 FINDINGS: LUNG BASES: Unremarkable. No mass. No consolidation. MEDIASTINUM: Small esophageal hiatal hernia. ABDOMEN: LIVER: Hepatomegaly with fatty infiltration. Hepatic cysts. GALLBLADDER AND BILE DUCTS: Unremarkable. No calcified stones. No ductal dilation. PANCREAS: Unremarkable. No ductal dilation. SPLEEN: Unremarkable. No splenomegaly. ADRENALS: Unremarkable. No mass. KIDNEYS AND URETERS: Bilateral nephrolithiasis without hydronephrosis. Parapelvic renal cysts, bilaterally. STOMACH AND BOWEL: Colonic diverticulosis without acute diverticulitis. No obstruction. PELVIS: APPENDIX: No findings to suggest acute appendicitis. BLADDER: Unremarkable. No stones. REPRODUCTIVE: Unremarkable as visualized. ABDOMEN and PELVIS: INTRAPERITONEAL SPACE: Unremarkable. No free air. No significant fluid collection. BONES/JOINTS: No acute fracture. No dislocation. SOFT TISSUES: Umbilical hernia containing fat. VASCULATURE: Unremarkable. No abdominal aortic aneurysm. LYMPH NODES: Unremarkable. No enlarged lymph nodes. OTHER FINDINGS: . . . IMPRESSION: 1. Small esophageal hiatal hernia. 2. Hepatomegaly with fatty infiltration. 3. Bilateral nephrolithiasis without hydronephrosis. 4. Umbilical hernia containing fat. 5. Colonic diverticulosis without acute diverticulitis. ATED BY: TANIYA GOMEZ MD DICTATED DATE/TIME: 10/10/241801 SIGNED BY: TANIYA GOMEZ MD SIGNED DATE/TIME: 10/10/241801 CC: Discharged With: Self Critical Care Note Critical Care Time?: No I personally scribed for JOSEMANUEL YAÑEZ DO ([email or web address]) on 10/10/24 at 20:25. Electronically submitted by Fadi Marrero ([email or web address]). I personally scribed for JOSEMANUEL YAÑEZ DO ([email or web address]) on 10/10/24 at 23:53. Electronically submitted by Sachin Whitten ([email or web address]). JOSEMANUEL YAÑEZ DO October 10, 2024 17:20
[2024-10-10 17:25] LABS: Urine Bacteria None Seen /hpf (None Seen)
[2024-10-10 17:36] LABS: Basophils # (auto) 0.1 10 ^3/uL (0-0.2); Basophils % (auto) 0.5 % (0.0-2.0); Eosinophils # (auto) 0 10 ^3/uL (0-0.8); Eosinophils % (auto) 0.1 % (0.0-7.0); Hematocrit 42.2 % (36.0-46.0); Hemoglobin 14.7 g/dL (12.2-16.2); Lymphocytes # (auto) 0.7 10 ^3/uL (0.4-5.4); Lymphocytes % (auto) 6.8 % (10.0-50.0); Mean Corpuscular Hemoglobin 29.6 pg (28.0-32.0); Mean Corpuscular Hgb Conc. 34.9 g/dL (32.0-36.0); Mean Corpuscular Volume 84.7 fL (80.0-100.0); Monocytes # (auto) 0.2 10 ^3/uL (0-1.3); Monocytes % (auto) 1.7 % (0.0-12.0); Neutrophils # (auto) 9.6 10 ^3/uL (1.6-8.6); Neutrophils % (auto) 90.9 % (37.0-80.0); Platelet Count (auto) 214 10^3/uL (140-450); Red Blood Cells 4.98 10^6/uL (4.0-5.20); Red Cell Distribution Width 13.9 % (11.8-14.3); White Blood Cell 10.6 10^3/uL (4.4-10.8)
[2024-10-10 17:43] LABS: Alanine Aminotransferase 36 U/L (7-40); Albumin 4.6 g/dL (3.2-4.8); Alkaline Phosphatase 67 U/L (46-116); Anion Gap 12 (5-15); Aspartate Aminotransferase 31 U/L (13-40); BUN/Creatinine Ratio 39.3 (10.0-20.0); Bilirubin, Total 0.7 mg/dL (0.2-1.0); Blood Urea Nitrogen 22 mg/dL (9-23); Calcium 9.4 mg/dL (8.7-10.4); Carbon Dioxide 23 mmol/L (20-31); Chloride 107 mmol/L (98-107); Lipase 31 U/L (12-53); Potassium 3.6 mmol/L (3.5-5.1); Sodium 142 mmol/L (136-145); Total Protein 6.9 g/dL (5.7-8.2)
--- NOTE | 2024-10-10 18:04 | DVH ---
EXAM: CT Abdomen and Pelvis Without Intravenous Contrast CLINICAL INDICATION: ABD PAIN N/V/D TECHNIQUE: Axial computed tomography images of the abdomen and pelvis without intravenous contrast. This CT exam was performed using one or more of the following dose reduction techniques: automated exposure control, adjustment of the mA and/or kV according to patient size, and/or use of iterative r econstruction technique. CONTRAST: RADIATION DOSE: CTDIvol = 19.31 mGy, DLP = 948.18 mGy-cm COMPARISON: CT CT AB PEL WO CON-NO ORAL OR IV on DOS: 11/30/23 FINDINGS: LUNG BASES: Unremarkable. No mass. No consolidation. MEDIASTINUM: Small esophageal hiatal hernia. ABDOMEN: LIVER: Hepatomegaly with fatty infiltration. Hepatic cysts. GALLBLADDER AND BILE DUCTS: Unremarkable. No calcified stones. No ductal dilation. PANCREAS: Unremarkable. No ductal dilation. SPLEEN: Unremarkable. No splenomegaly. ADRENALS: Unremarkable. No mass. KIDNEYS AND URETERS: Bilateral nephrolithiasis without hydronephrosis. Parapelvic renal cysts, orion aterally. STOMACH AND BOWEL: Colonic diverticulosis without acute diverticulitis. No obstruction. PELVIS: APPENDIX: No findings to suggest acute appendicitis. BLADDER: Unremarkable. No stones. REPRODUCTIVE: Unremarkable as visualized. ABDOMEN and PELVIS: INTRAPERITONEAL SPACE: Unremarkable. No free air. No significant fluid collection. BONES/JOINTS: No acute fracture. No dislocation. SOFT TISSUES: Umbilical hernia containing fat. VASCULATURE: Unremarkable. No abdominal aortic aneurysm. LYMPH NODES: Unremarkable. No enlarged lymph nodes. OTHER FINDINGS: . . . IMPRESSION: 1. Small esophageal hiatal hernia. 2. Hepatomegaly with fatty infiltration. 3. Bilateral nephrolithiasis without hydronephrosis. 4. Umbilical hernia containing fat. 5. Colonic diverticulosis without acute diverticulitis.
[2024-10-10 18:08] LABS: Urine Blood Negative /uL (Negative); Urine Clarity Clear (Clear); Urine Color Light-Yellow (Yellow); Urine Protein, UAD Negative (Negative); Urine Specific Gravity 1.018 (1.001-1.035); Urine Squamous Epithelial Cell FEW /hpf (<5); Urine Urobilinogen Normal (Negative); Urine WBC 1 /HPF (0-5); Urine pH 8.5 (5.0-9.0)
[2024-10-10 18:19] LABS: Glucose 115 mg/dL (74-106)
[2024-10-10 18:43] VITALS: BP 123/84; TEMP 99.1
[2024-10-10] MEDS: SODIUM CHLORIDE 0.9% 1,000 ML IV ONE (18:53)
[2024-10-10] MEDS: ONDANSETRON HCL 4 MG/2 ML VIAL IV ONE (18:53)
[2024-10-10 18:57] VITALS: PULSE 81; RESP 16; O2SAT 98
[2024-10-10] MEDS: HYDROcodone-ACET 5/325MG TAB PO ONE (19:34)
[2024-10-10] MEDS: LIDOCAINE VISCOUS 2% 15ML UD PO ONE (19:41)
[2024-10-10] MEDS: PANTOPRAZOLE 40 MG TAB PO ONE (19:41)
[2024-10-10] MEDS: SUCRALFATE 1 GM TAB PO ONE (19:41)
== END 2024-10-10 19:58 | disposition home or self-care (01) ==
LOC: ER 16:44 → EEVIPCON 16:44 → ER 19:58
DX: K42.9 Umbilical hernia without obstruction or gangrene (principal); K44.9 Diaphragmatic hernia without obstruction or gangrene; R16.0 Hepatomegaly, not elsewhere classified; F41.9 Anxiety disorder, unspecified; E78.5 Hyperlipidemia, unspecified; E11.9 Type 2 diabetes mellitus without complications; I10 Essential (primary) hypertension; K21.9 Gastro-esophageal reflux disease without esophagitis; Z79.899 Other long term (current) drug therapy; Z90.710 Acquired absence of both cervix and uterus; Z91.030 Bee allergy status; Z91.040 Latex allergy status
CPT/HCPCS: 36415; 74176; 80053; 81001; 83605; 83690; 83735; 84484; 85025; 85048; 87045; 96361; 96374; 99285; J2405; J7030

== ENCOUNTER 2024-12-11 07:58 | Outpatient (CLI) | payer BC ==
[2024-12-11 08:35] LABS: Hematocrit 39.7 % (36.0-46.0); Hemoglobin 13.7 g/dL (12.2-16.2); Mean Corpuscular Hemoglobin 29.6 pg (28.0-32.0); Mean Corpuscular Volume 85.8 fL (80.0-100.0); Nucleated Red Blood Cells % 0.1 %
[2024-12-11 08:48] LABS: INR 1.06 (0.9-1.15); Prothrombin Time 11.2 sec (9.3-11.8)
[2024-12-11 09:01] LABS: Alanine Aminotransferase 16 U/L (7-40); Albumin 4.7 g/dL (3.2-4.8); Alkaline Phosphatase 57 U/L (46-116); Anion Gap 9 (5-15); BUN/Creatinine Ratio 19.7 (10.0-20.0); Blood Urea Nitrogen 13 mg/dL (9-23); Calcium 10.2 mg/dL (8.7-10.4); Carbon Dioxide 29 mmol/L (20-31); Chloride 106 mmol/L (98-107); Glucose 85 mg/dL (74-106); Potassium 3.7 mmol/L (3.5-5.1); Sodium 144 mmol/L (136-145); Total Protein 6.9 g/dL (5.7-8.2); Triglycerides 100 mg/dL (< 150)
[2024-12-11 09:02] LABS: Bilirubin, Total 0.7 mg/dL (0.2-1.0); Cholesterol 214 mg/dL (< 200); HDL Cholesterol 54 mg/dL (40-59)
== END 2024-12-11 17:00 | disposition home or self-care (01) ==
LOC: LAB 07:58
PROVIDERS: ATTEND Internal Medicine
DX: K76.0 Fatty (change of) liver, not elsewhere classified (principal); E78.5 Hyperlipidemia, unspecified; R73.03 Prediabetes; Z79.899 Other long term (current) drug therapy
CPT/HCPCS: 36415; 80053; 80061; 82306; 83013; 83036; 85025; 85610; 86803

== ENCOUNTER 2024-12-24 22:18 | Emergency (ER) | payer BC ==
[~2024-12-24] VITALS: Ht 160 cm; Wt 82.7 kg
[2024-12-25] MEDS: LIDOCAINE VISCOUS 2% 15ML UD MT ONE
[2024-12-25] MEDS: MAALOX PLUS or MAALOX 30 ML PO ONE
[2024-12-25 00:23] LABS: Hematocrit 40.4 % (36.0-46.0); Hemoglobin 13.8 g/dL (12.2-16.2); Mean Corpuscular Hemoglobin 29.1 pg (28.0-32.0); Mean Corpuscular Volume 85.3 fL (80.0-100.0); Nucleated Red Blood Cells % 0.1 %
[2024-12-25 00:46] LABS: Alanine Aminotransferase 21 U/L (7-40); Albumin 4.8 g/dL (3.2-4.8); Alkaline Phosphatase 66 U/L (46-116); Anion Gap 10 (5-15); BUN/Creatinine Ratio 10.6 (10.0-20.0); Bilirubin, Total 0.7 mg/dL (0.2-1.0); Calcium 9.5 mg/dL (8.7-10.4); Carbon Dioxide 25 mmol/L (20-31); Chloride 106 mmol/L (98-107); Glucose 92 mg/dL (74-106); Lipase 34 U/L (12-53); Sodium 141 mmol/L (136-145); Total Protein 7.1 g/dL (5.7-8.2)
[2024-12-25 00:48] LABS: Blood Urea Nitrogen 7 mg/dL (9-23); Potassium 3.3 mmol/L (3.5-5.1)
--- NOTE | 2024-12-25 01:01 | DVH ---
Exam: CT CT AB PEL WO CON-NO ORAL OR IV History: abd pain Comparison Study: CT CT AB PEL WO CON-NO ORAL OR IV on DOS: 10/10/24, CT CT AB PEL WO CON-NO ORAL OR I V on DOS: 11/30/23 TECHNIQUE: Multidetector CT of the abdomen was performed from lung bases to pubic symphysis. Imaging was performed without IV contrast. Axial, coronal and sagittal multiplanar reformats were obtained fr om the axial data set by the technologist. Radiation Dose Information: CT Dose: CTDI volume is 15.49 mGy. Dose-length product is 801 mGy*cm FINDINGS: Evaluation of solid organs is limited due to lack of intravenous contrast use. Findings: Lung Bases: No acute or significant lung base finding. Normal heart size. No pleural or pericardial effusion. Liver: The liver is normal in size. Subcentimeter hypodensity too small to accurately characterize. Gallbladder and Biliary Tree: Unremarkable Spleen: Unremarkable Pancreas: The pancreas is grossly normal in appearance. Adrenal Glands: Unremarkable Kidneys: Kidneys are grossly normal without obstructive calculi or hydronephrosis. Scattered nonobstr uctive tiny stones within bilateral kidneys. There is bilateral extrarenal pelvis. Bladder: Grossly unremarkable for degree of distention. Bowel: The stomach is grossly normal in appearance. Small bowel and colon are normal in caliber and d istribution. The appendix is normal. Colonic diverticulosis without acute diverticulitis. Ascites: Absent Lymphadenopathy: No mesenteric, retroperitoneal or periportal lymphadenopathy. Abdominal Wall and Mesentery: Unremarkable. Vasculature: The visualized abdominal aorta is normal in size and caliber. Evaluation of abdominal a nd pelvic vessels is limited due to lack of intravenous contrast. Pelvic Organs: Unremarkable Musculoskeletal: No aggressive focal bony lesions, acute fractures or dislocation. Soft tissues: Unremarkable IMPRESSION: 1. No acute abdominal or pelvic finding. 2. Colonic diverticulosis without acute diverticulitis. No bowel obstruction.
[2024-12-25] MEDS ORDERED: ZOFR4T PO (03:15)
[2024-12-25] MEDS ORDERED: DICY10CA PO (03:15)
--- NOTE | 2024-12-25 03:17 | ED.PDOC ---
GI ASSESSMENT HPI Comments Patient complaining of midepigastric pain which started this morning. Gotten worse over the day. States it is worse after eating. States she has a history of GI complications, gastritis and diverticulitis. No new foods or new medications. No fever no chills no urinary symptoms. Chief Complaint: Abdominal Pain Time Seen by MD: 22:50 Primary Care Provider: ROSLYN Reviewed Notes: Nurses Notes Allergies: Coded Allergies: Latex (Verified Allergy, Unknown, 04/11/15) Uncoded Allergies: BEES (Allergy, Severe, 10/10/24) Home Meds Reported Medications Cholecalciferol (D3 2000) 2,000 Unit Cap, 2000 UNIT PO DAILY, CAP 02/14/23 Sertraline Hcl (Sertraline Hcl) 50 Mg Tab, 50 MG PO DAILY, TAB 02/14/23 Potassium Chloride (POTASSIUM CHLORIDE CR) 10 Meq Tb, 10 MEQ PO DAILY, TAB 02/14/23 Hydrochlorothiazide W/Triamter (Hctz/Triamterene) 1 Tab Tab, 1 TAB PO DAILY, TAB 02/14/23 Sumatriptan Succinate (Imitrex) 25 Mg Tab 02/19/12 Information Source: Patient Mode of Arrival: Ambulatory Past Medical History PAST MEDICAL HISTORY: Anxiety, DM, High Lipids, HTN Surgical History: Hysterectomy OFFICE LEAD History: No Pertinent OFFICE LEAD History Family History Family History: Unknown Social History Smoker: Non-Smoker Alcohol: Denies ETOH Use Drugs: Denies Drug Use Lives In: Home Constitutional: denies: chills, diaphoresis, fatigue, fever, malaise, sweats, weakness, others EENTM: denies: blurred vision, double vision, ear bleeding, ear discharge, ear drainage, ear pain, ear ringing, eye pain, eye redness, hearing loss, mouth pain, mouth swelling, nasal discharge, nose bleeding, nose congestion, nose pain, photophobia, tearing, throat pain, throat swelling, voice changes, others Respiratory: denies: cough, hemoptysis, orthopnea, SOB at rest, shortness of breath, SOB with excertion, stridor, wheezing, others Cardiovascular: denies: chest pain, dizzy spells, diaphoresis, Dyspnea on exertion, edema, irregular heart beat, left arm pain, lightheadedness, palpitations, PND, syncope, others Gastrointestinal: reports: abdominal pain, nausea; denies: abdomen distended, blood streaked bowels, constipated, diarrhea, dysphagia, difficulty swallowing, hematemesis, melena, poor appetite, poor fluid intake, rectal bleeding, rectal pain, vomiting, others Genitourinary: denies: abnormal vagina bleeding, burning, dyspareunia, dysuria, flank pain, frequency, hematuria, incontinence, pain, , vagina discharge, urgency, others Neurological: denies: dizziness, fainting, headache, left sided numbness, left sided weakness, numbness, paresthesia, pre-existing deficit, right sided numbness, right sided weakness, seizure, speech problems, tingling, tremors, weakness, others Musculoskeletal: denies: back pain, gout, joint pain, joint swelling, muscle pain, muscle stiffness, neck pain, others Integumetry: denies: bruises, change in color, change in hair/nails, dryness, laceration, lesions, lumps, rash, wounds, others Allergic/Immunocompromised: denies: Difficulty Healing, Frequent Infections, Hives, Itching, others Hematologic/Lymphatic: denies: anemia, blood clots, easy bleeding, easy bruising, swollen glands, others Physical Exam General Appearance: Moderate Distress, Normal HEENT: Normal ENT Inspection, Pharynx Normal, TMs Normal Neck: Full Range of Motion, Non-Tender, Normal, Normal Inspection Respiratory: Chest Non-Tender, Lungs Clear, No Accessory Muscle Use, No Respiratory Distress, Normal Breath Sounds Cardiovascular: No Edema, No JVD, No Murmur, No Gallop, Normal Peripheral Pulses, Regular Rate/Rhythm Breast Exam: Deferred Gastrointestinal: Epigastric, Guarding, No Organomegaly, Soft Genitalia: Deferred Pelvic: Deferred Rectal: Deferred Extremities: No calf tenderness, Normal capillary refill, Normal inspection, Normal range of motion, Non-tender, No pedal edema Musculoskeletal : Apperance: Normal Neurologic: Alert, cooling pan tender II-XII nml as Tested, No Motor Deficits, Normal Affect, Normal Mood, No Sensory Deficits Cerebellar Function: Normal Reflexes: Normal Skin: Dry, Normal Color, Warm Lymphatic: No Adenopathy Was a procedure done? Was a procedure done?: No GI differential Dx Differential Diagnosis: Constipation, Diverticular disease, Dysmenorrhea, Gastritis/PUD, Gastroenteritis X-Ray, Labs, Meds, VS Vital Signs Date Time Temp Pulse Resp B/P (MAP) Pulse Ox O2 Delivery O2 Flow Rate FiO2 12/24/24 22:20 98.5 82 16 149/94 98 98.5 Lab Test 12/25/24 00:05 Range/Units White Blood Count 5.8 4.4-10.8 10^3/uL Red Blood Count 4.74 4.0-5.20 10^6/uL Hemoglobin 13.8 12.2-16.2 g/dL Hematocrit 40.4 36.0-46.0 % Mean Corpuscular Volume 85.3 80.0-100.0 fL Mean Corpuscular Hemoglobin 29.1 28.0-32.0 pg Mean Corpuscular Hemoglobin Concent 34.1 32.0-36.0 g/dL Red Cell Distribution Width 13.6 11.8-14.3 % Platelet Count 217 140-450 10^3/uL Mean Platelet Volume 8.1 6.9-10.8 fL Neutrophils (%) (Auto) 50.2 37.0-80.0 % Lymphocytes (%) (Auto) 43.0 10.0-50.0 % Monocytes (%) (Auto) 4.7 0.0-12.0 % Eosinophils (%) (Auto) 0.9 0.0-7.0 % Basophils (%) (Auto) 1.2 0.0-2.0 % Neutrophils # (Auto) 2.9 1.6-8.6 10 ^3/uL Lymphocytes # (Auto) 2.5 0.4-5.4 10 ^3/uL Monocytes # (Auto) 0.3 0-1.3 10 ^3/uL Eosinophils # (Auto) 0.1 0-0.8 10 ^3/uL Basophils # (Auto) 0.1 0-0.2 10 ^3/uL Nucleated Red Blood Cells 0.1 % Sodium Level 141 136-145 mmol/L Potassium Level 3.3 L 3.5-5.1 mmol/L Chloride Level 106 98-107 mmol/L Carbon Dioxide Level 25 20-31 mmol/L Anion Gap 10 5-15 Blood Urea Nitrogen 7 L 9-23 mg/dL Creatinine 0.66 0.550-1.02 mg/dL Glomerular Filtration Rate Calc 103 >90 mL/min BUN/Creatinine Ratio 10.6 10.0-20.0 Serum Glucose 92 74-106 mg/dL Calcium Level 9.5 8.7-10.4 mg/dL Total Bilirubin 0.7 0.2-1.0 mg/dL Aspartate Amino Transferase (AST) 20 13-40 U/L Alanine Aminotransferase (ALT) 21 7-40 U/L Alkaline Phosphatase 66 46-116 U/L Total Protein 7.1 5.7-8.2 g/dL Albumin 4.8 3.2-4.8 g/dL Lipase 34 12-53 U/L Current Medications Medications (Trade) Dose Ordered Sig/Conrad Route Start Time Stop Time Status Last Admin Lidocaine HCl (Xylocaine 2% Viscous) 5 ml ONCE ONCE MT 12/25/24 00:00 12/25/24 00:01 DC 12/25/24 00:00 Al Hydrox/Mg Hydrox/Simethicone (Maalox Plus) 30 ml ONCE ONCE PO 12/25/24 00:00 12/25/24 00:01 DC 12/25/24 00:00 X-Ray, Labs, Meds, VS Comment Imaging was reviewed by this provider, there is no obvious pathological or acute disease process. Pending radiology review Labs were reviewed by this provider, no abnormalities Vital signs reviewed by this provider, clinically stable Time of 1ST Reevaluation: 03:16 Reevaluation 1ST: Improved Patient Education/Counseling: Diagnosis, Treatment, Need For Follow Up (Follow up with PCP at next available appointment. Return to the emergency department if symptoms worsen) Family Education/Counseling: No Family Present SEPSIS Sepsis Screen Date sepsis recognized/suspect: Dec 24, 2024 Time Sepsis recognized/suspect: 2224 Recent Procedure: No On Antibiotic Therapy: No Respiratory Rate >20: No Heart Rate >90: No Temp<36 C (96.8 F) or >38.3 C: No SBP <90 or MAP <65 mmHG: No New Acute Mental Status Change: No Is the patient on CPAP, BIPAP,: No Physician Orders Urinalysis (12/24/24 23:55) Ct Ab Pel Wo Con-No Oral Or Iv (12/24/24 23:55) Vital Signs Date Time Temp Pulse Resp B/P (MAP) Pulse Ox O2 Delivery O2 Flow Rate FiO2 12/24/24 22:20 98.5 82 16 149/94 98 98.5 Laboratory Tests Test 12/25/24 00:05 White Blood Count 5.8 10^3/uL (4.4-10.8) Medications Medications Dose Ordered Sig/Conrad Route Start Time Stop Time Status Last Admin Dose Admin Al Hydrox/Mg Hydrox/Simethicone 30 ml ONCE ONCE PO 12/25/24 00:00 12/25/24 00:01 DC 12/25/24 00:00 Lidocaine HCl 5 ml ONCE ONCE MT 12/25/24 00:00 12/25/24 00:01 DC 12/25/24 00:00 Departure 1 Departure Time of Disposition: 03:12 Impression: Primary Impression: Gastritis Qualified Codes: K29.00 - Acute gastritis without bleeding Disposition: HOME / SELF CARE / HOMELESS Condition: Fair e-Prescriptions Ondansetron Odt 4MG Tab (ZOFRAN PO) 4 Mg Tb 4 MG PO TID PRN, #20 TAB ODT TAB-DISSOLVE IN MOUTH, THEN SWALLOW Prov: ROBER IVAN 12/25/24 Dicyclomine Hcl (BENTYL CAPSULE) 10 Mg Cp 1 CAP PO TID, #30 CAP 3 Refills Prov: ROBER IVAN 12/25/24 Discharged With: Self Critical Care Note Critical Care Time?: No Stability Stability form required: No Heart Score Heart Score: Heart Score Response (Comments) Value History N/A 0 EKG N/A 0 Age N/A 0 Risk Factors N/A 0 Troponin N/A 0 Total 0 ROBER IVAN Dec 25, 2024 03:16
[2024-12-25 03:49] VITALS: BP 129/79; PULSE 68; RESP 20; TEMP 97.5; O2SAT 98
== END 2024-12-25 03:54 | disposition home or self-care (01) ==
LOC: ER 22:18 → EEVIPCON 22:18 → ER 12-25 03:54
DX: K29.70 Gastritis, unspecified, without bleeding (principal); E11.9 Type 2 diabetes mellitus without complications; F41.9 Anxiety disorder, unspecified; I10 Essential (primary) hypertension; Z90.710 Acquired absence of both cervix and uterus; Z79.899 Other long term (current) drug therapy
CPT/HCPCS: 36415; 74176; 80053; 83690; 85025

== ENCOUNTER → 2025-02-05 | Day surgery (SDC) | payer BC ==
[2025-01-31 10:32] LABS: Hematocrit 39.2 % (36.0-46.0); Hemoglobin 13.4 g/dL (12.2-16.2); Mean Corpuscular Hemoglobin 29.0 pg (28.0-32.0); Mean Corpuscular Volume 85.2 fL (80.0-100.0); Nucleated Red Blood Cells % 0.0 %
[2025-01-31 10:35] LABS: Urine Protein, UAD Negative (Negative)
[2025-01-31 10:48] LABS: INR 0.98 (0.9-1.15); Partial Thromboplastin Time 29.1 SEC (24.5-34.5); Prothrombin Time 10.4 sec (9.3-11.8)
[2025-01-31 10:52] LABS: Alanine Aminotransferase 14 U/L (7-40); Alkaline Phosphatase 67 U/L (46-116)
[2025-01-31 10:53] LABS: Albumin 4.6 g/dL (3.2-4.8); Anion Gap 8 (5-15); BUN/Creatinine Ratio 15.7 (10.0-20.0); Bilirubin, Total 0.4 mg/dL (0.2-1.0); Blood Urea Nitrogen 11 mg/dL (9-23); Calcium 9.8 mg/dL (8.7-10.4); Carbon Dioxide 28 mmol/L (20-31); Chloride 106 mmol/L (98-107); Glucose 91 mg/dL (74-106); Potassium 4.1 mmol/L (3.5-5.1); Sodium 142 mmol/L (136-145); Total Protein 7.3 g/dL (5.7-8.2)
[~2025-02-05] VITALS: Ht 162.6 cm; Wt 83.5 kg
[~2025-02-05] MED LIST changes: +DICY10CA PO; +GLYCOPYRROLATE 0.2 MG/ML 1ML VIAL ONE; +KETOROLAC TROMETH 30 MG/ML 1ML VIAL ONE; +LIDOCAINE 2% (LOCAL ANESTH.) PF 5ml SDV ONE; +ONDANSETRON HCL 4 MG/2 ML VIAL ONE; +PROPOFOL 10 MG/ML 20 ML IV ONE; +ZOFR4T PO; +ceFAZolin 2 GM/D5W50ml 50 ML IV ONE
[2025-02-05 06:18] VITALS: BP 134/99; PULSE 82; RESP 20; TEMP 98.8; O2SAT 95
--- NOTE | 2025-02-05 07:59 | DVHNC2 ---
Procedure - The patient is scheduled for left lithotripsy of a 3 mm left lower pole renal stone. She states she had sharp left flank pain three weeks ago and has not had any pain since then. Surgery is canceled. Patient will be follow up in clinic with [facility] and [facility] in two weeks FAYE CLAIRE MD Feb 05, 2025 07:59
== END | disposition home or self-care (01) ==
LOC: SUR 06:05
PROVIDERS: ATTEND Urology
DX: N20.0 Calculus of kidney (principal); Z53.8 Procedure and treatment not carried out for other reasons
CPT/HCPCS: 36415; 80053; 81001; 85025; 85610; 85730; 87086; J0690; J2003; J1100; J1885; J2405; J2704